=== PATIENT | female | born 1950 | race Two or more races ===

== ENCOUNTER → 2024-08-23 | Outpatient (CLI) | payer OTHER, MEDICAID, SELFPAY ==
--- NOTE | 2024-08-23 13:30 | XR_ITS ---
Examination: Screening digital mammography, bilateral Computer aided detection 3-D breast Tomosynthesis, bilateral Date and time of exam: 08/23/2024, 1:33 PM Comparisons: May 2009 through January 2023 Indications: Screening Technique: Nonmagnified MLO, CC views of the breasts to been obtained, reconstructed from 3-D Tomosynthesis images. R2 computer aided detection program utilized for evaluation of suspicious masses and/or abnormal calcifications. 3-D Tomosynthesis images obtained. Technologist: Findings: There are scattered areas of fibroglandular density. No evidence of abnormal masses or suspicious calcifications. Impression: BI-RADS category 1: Negative findings (within normal) Recommend 1 year follow-up mammogram
[2024-08-23 15:31] LABS: Basophils # (Auto) 0.1 Thou/mm3 (0.0-0.2); Basophils % (Auto) 1 % (0-2.5); Eosinophils # (Auto) 0.2 Thou/mm3 (0.0-0.5); Eosinophils % (Auto) 3 % (0-10); Hematocrit 39.7 % (36.0-46.0); Hemoglobin 13.3 g/dL (12.0-16.0); Immature Granulocytes % (Auto) 0 % (0-0); Immature Granulocytes Auto 0.02 Thou/mm3 (0.00-0.00); Lymphocytes % (Auto) 34 % (10-50); Mean Corpuscular HGB Conc 33.5 g/dl (31.0-37.0); Mean Corpuscular Hemoglobin 29.8 pg (25.0-35.0); Mean Corpuscular Volume 89 fL (80-100); Monocytes # (Auto) 0.7 Thou/mm3 (0.0-0.8); Monocytes % (Auto) 8 % (0-12); Neutrophils # (Auto) 4.8 Thou/mm3 (1.8-7.7); Neutrophils % (Auto) 55 % (37-80); Nucleated Red Blood Cell % 0 /100 WBC (0); Platelet Count 290 Thou/mm3 (140-440); RDW Standard Deviation 40.6 fL (36.4-46.3); Red Blood Count 4.47 Miln/mm3 (4.00-5.20); White Blood Count 8.9 Thou/mm3 (3.6-11.0)
[2024-08-23 15:52] LABS: Alanine Aminotransferase 26 U/L (10-49); Albumin, Serum 4.2 gm/dL (3.4-4.8); Anion Gap 11 (7-16); Aspartate Amino Transferase 29 U/L (0-34); BUN/Creatinine Ratio 17 Ratio (12-20); Bilirubin,Direct 0.1 mg/dL (0.0-0.3); Bilirubin,Total 0.4 mg/dL (0.3-1.2); Blood Urea Nitrogen 19 mg/dL (9-23); Calcium 9.2 mg/dL (8.3-10.6); Carbon Dioxide 27.5 mMol/L (20.0-31.0); Chloride 104 mMol/L (98-107); Cholesterol 185 mg/dL (132-200); Creatinine (Component) 1.1 mg/dL (0.6-1.3); Glucose 111 mg/dL (74-106); HDL Cholesterol 46 mg/dL (40-60); LDL Cholesterol,Calculated 107 mg/dL (0-130); Osmolality,Calculated 286 (275-295); Potassium 4.2 mMol/L (3.4-5.1); Sodium 142 mMol/L (136-145); Total Protein 7.5 gm/dL (5.7-8.2); Triglycerides 161 mg/dL (30-150); eGFR 53 See Note
[2024-08-23 16:06] LABS: Alkaline Phosphatase 96 U/L (46-116)
== END | disposition home or self-care (01) ==
LOC: CDIM 13:36 → COPL 13:44
PROVIDERS: PCP Family Medicine; Referring Provider Family Medicine; Visit Provider Radiology Diagnostic Radiology
DX: Z12.31 Encounter for screening mammogram for malignant neoplasm of breast (principal); R92.8 Other abnormal and inconclusive findings on diagnostic imaging of breast; R92.313 Mammographic fatty tissue density, bilateral breasts; E78.5 Hyperlipidemia, unspecified; I10 Essential (primary) hypertension
CPT/HCPCS: 36415; 77063; 77067; 80048; 80061; 80076; 85025

== ENCOUNTER 2024-09-19 15:37 | Emergency (ER) | payer OTHER, MEDICAID, SELFPAY ==
[2024-09-19 15:38] VITALS: BMI 35.0
[2024-09-19 16:02] VITALS: BP 162/73; PULSE 104; RESP 18; TEMP 37; O2SAT 95
--- NOTE | 2024-09-19 16:04 | XR_ITS ---
Examination: Tibia-Fibula, left , 2 views Technique: Tibia-fibula AP lateral 2 views Date and time of exam: September 19, 2024 1518 hours INDICATIONS: Left lower leg redness swelling and pain today FINDINGS: Moderate osteopenia No acute fracture No esdras cortical bone destruction IMPRESSION: No esdras cortical bone destruction
--- NOTE | 2024-09-19 16:04 | PD.EDRME ---
Rapid Medical Screening Exam RME Arrival date/time: 09/19/24 15:37 Chief Complaint: Extremity Injury, Lower Time Seen by Provider: 09/19/24 15:43 Vital signs: Vital Signs Temperature 98.6 F 09/19/24 16:02 Pulse Rate 104 H 09/19/24 16:02 Respiratory Rate 18 09/19/24 16:02 Blood Pressure 162/73 H 09/19/24 16:02 Pulse Oximetry (%) 95 09/19/24 16:02 Oxygen Delivery Method Room Air 09/19/24 16:02 E Narrative: LLE redness, swelling, weeping x1 day. Denies hx DM.
[2024-09-19 16:24] LABS: Basophils % (Auto) 1 % (0-2.5); Eosinophils # (Auto) 0.3 Thou/mm3 (0.0-0.5); Eosinophils % (Auto) 4 % (0-10); Hemoglobin 13.2 g/dL (12.0-16.0); Immature Granulocytes % (Auto) 0 % (0-0); Immature Granulocytes Auto 0.02 Thou/mm3 (0.00-0.00); Lymphocytes # (Auto) 2.6 Thou/mm3 (1.0-4.8); Lymphocytes % (Auto) 34 % (10-50); Mean Corpuscular HGB Conc 34.7 g/dl (31.0-37.0); Mean Corpuscular Hemoglobin 30.7 pg (25.0-35.0); Mean Corpuscular Volume 88 fL (80-100); Monocytes # (Auto) 0.7 Thou/mm3 (0.0-0.8); Monocytes % (Auto) 9 % (0-12); Neutrophils # (Auto) 3.9 Thou/mm3 (1.8-7.7); Neutrophils % (Auto) 53 % (37-80); Nucleated Red Blood Cell % 0 /100 WBC (0); Platelet Count 278 Thou/mm3 (140-440); RDW Standard Deviation 41.3 fL (36.4-46.3); White Blood Count 7.5 Thou/mm3 (3.6-11.0)
[2024-09-19 16:49] LABS: Alanine Aminotransferase 25 U/L (10-49); Albumin, Serum 4.3 gm/dL (3.4-4.8); Albumin/Globulin Ratio 1.3 (1.2-2.2); Alkaline Phosphatase 92 U/L (46-116); Anion Gap 10 (7-16); Aspartate Amino Transferase 31 U/L (0-34); BUN/Creatinine Ratio 13 Ratio (12-20); Bilirubin,Total 0.4 mg/dL (0.3-1.2); Blood Urea Nitrogen 16 mg/dL (9-23); C-Reactive Protein 0.8 mg/dL (0.0-0.9); Calcium 8.8 mg/dL (8.3-10.6); Calcium (Corrected) 8.8 mg/dL (8.5-10.1); Carbon Dioxide 25.2 mMol/L (20.0-31.0); Chloride 107 mMol/L (98-107); Creatinine (Component) 1.2 mg/dL (0.6-1.3); Estimated Creatinine Clearance 43.7 mL/min (>60); Globulin 3.2 gm/dL (2.3-3.5); Glucose 127 mg/dL (74-106); Osmolality,Calculated 286 (275-295); Potassium 3.6 mMol/L (3.4-5.1); Procalcitonin 0.08 ng/ml (0.0-0.49); Sodium 142 mMol/L (136-145); Total Protein 7.5 gm/dL (5.7-8.2); eGFR 48 See Note
[2024-09-19 17:15] LABS: Sed Rate (ESR) 19 mm/hr (0-30)
--- NOTE | 2024-09-19 19:57 | PD.EDLOWEX ---
Lower Extremity Injury RME/HPI General Chief Complaint: Extremity Injury, Lower Stated Complaint: DARK RED, SWOLLEN, OOZING LLE. Time Seen by Provider: 09/19/24 15:43 Arrival date/time: 09/19/24 15:37 Limitations: no limitations RME / HPI RME / HPI Narrative: 73-year-old female with past medical history of venous insufficiency, fibromyalgia, hypertension presents for evaluation of ulcer to her left anterior lower leg x 1 day. She denies history of similar symptoms. She notes that she had a vascular stent placed in her left lower leg several years ago and is pending outpatient referral for further management of venous insufficiency. She reports that she was prescribed compression stockings but is noncompliant. Denies fever, chills, nausea, vomiting, injury, numbness, chest pain, shortness of breath. Related Data Home Medications ?Medication ?Instructions ?Recorded ?Confirmed tramadol 50 mg tablet (Ultram) 50 mg PO Q4HR PRN PAIN #0 tabs 03/15/14 gabapentin 800 mg tablet 800 mg PO TID NEUROPATHY ##0 07/04/14 baclofen 20 mg tablet 20 mg PO BID #0 tabs 09/28/15 bupropion HCl 150 mg tablet,12 hr 150 mg PO BID ##0 09/28/15 sustained-release (Wellbutrin SR) mirtazapine 15 mg tablet (Remeron) 15 mg PO HS #0 tabs 09/28/15 tizanidine 4 mg tablet (Zanaflex) 4 mg PO BID #0 tabs 09/28/15 Previous Rx's ?Medication ?Instructions ?Recorded TRIMETHOPRIM/SULFAMETHOXAZOLE 1 tab PO BID #28 tabs 10/02/15 (Bactrim Ds) cephalexin 500 mg capsule 500 mg PO BID 10 days #20 caps 09/19/24 sulfamethoxazole 800 1 tab PO BID 7 days #14 tabs 09/19/24 mg-trimethoprim 160 mg tablet (Bactrim DS) Allergies Allergy/AdvReac Type Severity Reaction Status Date / Time No Known Allergies Allergy Verified 09/19/24 15:41 Review of Systems Constitutional Constitutional: Denies chills, Denies fatigue, Denies fever(s), Denies night sweats and Denies weakness ENT Ears, Nose, Mouth, and Throat: Denies disequilibrium, Denies dizziness and Denies neck pain Cardiovascular Cardiovascular: Denies chest pain, Denies dyspnea, Reports leg edema and Denies palpitations Respiratory Respiratory: Denies cough, Denies dyspnea, Denies hemoptysis and Denies wheezing Gastrointestinal Gastrointestinal: Denies abdominal pain, Denies nausea and Denies vomiting Musculoskeletal Musculoskeletal: Reports back pain (Chronic.) and Denies neck pain Integumentary/Breasts Skin/Breast: Reports erythema (Left anterior leg.), Reports non-healing lesions (Left anterior leg.), Reports sores (Left anterior leg.) and Reports skin swelling Neurologic Neurologic: Denies disequilibrium, Denies dizziness and Denies weakness Endocrine Endocrine: Denies fatigue and Denies palpitations Allergic/Immunologic Allergic/Immunologic: Denies wheezing Past Medical History Social History SMOKING STATUS: Never smoker ED Exam General Limitations: Present no limitations General appearance: Present alert and in no apparent distress Head Head exam: Present atraumatic and normocephalic Eye Eye exam: Present normal appearance and EOMI ENT ENT exam: Present normal exam, normal oropharynx and mucous membranes moist Chest Chest inspection: Present normal inspection and symmetric chest wall rise Respiratory Respiratory exam: Absent respiratory distress Cardiovascular Cardiovascular exam: Present tachycardia Abdominal Exam Abdominal exam: Present soft; Absent distention Expanded Lower Extremity Exam Leg image:  1. Approximately 4 cm ulcerative lesion with purulent discharge and surrounding erythema consistent with cellulitis. No crepitus. Erythematous area is indurated. Knee exam: Absent tenderness Lower leg exam: Present swelling and erythema; Absent crepitus Gait: not tested/not observed Neurological Exam Neurological exam: Present alert Psychiatric Psychiatric exam: Present normal affect Skin Skin exam: Present warm and dry Course Quality Measures none Orders Category Date Time Status XR tibia fibula LT 2V Stat Exams 09/19/24 16:04 Completed Blood Culture (Lab) Stat Lab 09/19/24 16:10 Results CBC Stat Lab 09/19/24 16:15 Completed CMP [Comprehensive Metabolic Panel] Stat Lab 09/19/24 16:15 Completed CRP [C-Reactive Protein] Stat Lab 09/19/24 16:15 Completed ESR [Sed Rate (ESR)] Stat Lab 09/19/24 16:15 Completed Lactate (Lactic Acid) Stat Lab 09/19/24 16:15 Completed Procalcitonin Stat Lab 09/19/24 16:15 Completed HYDROcodone*/APAP 5/325 [Sunol 5/325] Med 09/19/24 19:59 Discontinued 1 tab PO X1 ONE Ketorolac Inj [Toradol Inj] Med 09/19/24 19:57 Discontinued 30 mg IM X1 ONE cefTRIAXone [Rocephin] 1,000 mg Med 09/19/24 19:58 Discontinued Lidocaine 1% 20 ml [Xylocaine 1% 20 ML] 2.1 ml IM X1 Vital Signs Vital signs: Vital Signs Temperature 98.6 F 09/19/24 16:02 Pulse Rate 104 H 09/19/24 16:02 Respiratory Rate 18 09/19/24 16:02 Blood Pressure 162/73 H 09/19/24 16:02 Pulse Oximetry (%) 95 09/19/24 16:02 Oxygen Delivery Method Room Air 09/19/24 16:02 Pulse ox 95% on room air, within normal limits. Extremity Injury, Lower MDM Narrative MDM Narrative:: 73-year-old female presents with ulcerative lesion left lower extremity in the setting of known venous insufficiency with prior stent placement. Patient mildly tachycardic otherwise vital signs reassuring. No evidence of osteomyelitis on imaging today with negative Pro-Jayden further pointing away from bony involvement at this time. Patient does not meet SIRS criteria and had a negative lactic and no leukocytosis. Ultimately the patient was given a dose of Rocephin in the department with plan for outpatient follow-up with primary care and ultimately vascular surgery at this is likely related to her known venous insufficiency. Patient was discharged on x 2 oral antibiotics with MRSA coverage. Basic dressing was applied and patient was stable at time discharge. Patient data External records reviewed:: [facility] previous records Clinical information provided by:: patient and family (Son.) Social determinants that could affect healthcare access:: none (Lapse in insurance.) Patient has the following chronic illnesses:: Venous insufficiency. How is presenting disease/condition affected by chronic disease/condition?: caused by Evaluation data The following diagnostics were reviewed and interpreted by me:: lab results and radiology exam(s) Lab and/or radiology exams considered but not ordered:: Considered not ordered. Interpretation Summary: X-ray left lower extremity without cortical bone destruction. Soft tissue swelling. No leukocytosis or evidence of systemic infection at this time. Lactic acid and Pro-Jayden within normal limits. Medications / Prescriptions Medications or Prescriptions considered but not ordered:: Rx given. Medication administrations:: Medication Administration History Discontinued Medications Hydrocodone Bitart/Acetaminophen (Hydrocodone/Apap 5/325 Tablet) 1 tab PO X1 ONE Stop: 09/19/24 20:00 Last Admin: 09/19/24 20:04 Dose: 1 tab Documented By: FREEDOM Ceftriaxone Sodium 1,000 mg/ (Lidocaine HCl 2.1 ml) 0 mg IM X1 ONE Stop: 09/19/24 19:59 Last Admin: 09/19/24 20:05 Dose: 1,000 mg Documented By: FREEDOM Ketorolac Tromethamine (Ketorolac Inj 60 Mg/2 Ml Vial) 30 mg IM X1 ONE Stop: 09/19/24 19:58 Last Admin: 09/19/24 20:09 Dose: Not Given Documented By: FREEDOM Non-Admin Reason: Cancelled by Provider Rx given. Consultations Consultation(s) initiated? (list below): No Diagnosis Extremity Injury, Lower Differential Diagnosis: other (Osteomyelitis, cellulitis, sepsis, venous insufficiency.) Most likely diagnosis given after review of the tests above:: Cellulitis. Ulcerative lesion of left lower extremity. Admission Indicated Admission indicated?: not indicated Admission Request Was there a request for admission?: No Disposition Plan Disposition Plan: Discharge Discharge Attestation Discharge Attestation: The patient and all family members were given an opportunity to ask questions and understood the discharge instructions. Discharge instructions specifically effects, indications for sooner follow up or return to the emergency department, and the expected course of current diagnosis. Patient condition: Stable Discharge Plan Plan Patient Disposition: HOME (Self Care) Disposition Comment: stable Prescriptions/Referrals Prescriptions/Med Rec: New cephalexin 500 mg capsule 500 mg PO BID 10 Days Qty: 20 0RF sulfamethoxazole-trimethoprim [Bactrim DS] 800-160 mg tablet 1 tab PO BID 7 Days Qty: 14 0RF No Action tramadol [Ultram] 50 MG tablet 50 mg PO Q4HR PRN (Reason: PAIN) Qty: 0 Patient Comments: FOR PAIN, NOT TO EXCEED 8 TABS IN 24 HRS gabapentin 800 MG tablet 800 mg PO TID Qty: 0 bupropion HCl [Wellbutrin SR] 150 MG tablet extended release 12 hr 150 mg PO BID Qty: 0 tizanidine [Zanaflex] 4 MG tablet 4 mg PO BID Qty: 0 baclofen 20 MG tablet 20 mg PO BID Qty: 0 mirtazapine [Remeron] 15 MG tablet 15 mg PO HS Qty: 0 TRIMETHOPRIM/SULFAMETHOXAZOLE (Bactrim Ds) 1 TAB tablet 1 tab PO BID Qty: 28 0RF Referrals: No Primary/Family,Physician [Primary Care Provider] - In 1 week Problem List Clinical Impression: Ulcer of lower extremity, Cellulitis Patient/Caregiver Discharge Instructions Other Activity Instructions:: Take Keflex twice daily for the next x 10 days. Take Bactrim 3 times daily for the next x 7 days. Treat leg pain as needed with Tylenol every 6 hours. Use compression stockings as instructed. Follow-up with primary care within the next 2 to 3 days for further evaluation and treatment. Continue as planned with outpatient vascular surgeon. Return to the ED if your symptoms worsen or change. Education Materials: ED Cellulitis Print Language: Turkish Stand Alone Forms: [facility] Award Info., Patient Portal Info Letter PA/CLOCK ASSEMBLER Supervising Physician PA/CLOCK ASSEMBLER Supervising Physician: Dr. Hammonds
[2024-09-19] MEDS: HYDROcodone/APAP 5/325 TABLET 1 TAB PO (20:04)
[2024-09-19] MEDS: cefTRIAXone 1,000 MG, LIDOCAINE 1% 20 ML 2.1 ML IM (20:05)
== END 2024-09-19 20:39 | disposition home or self-care (01) ==
PROVIDERS: Physician Assistant; Emergency Provider Emergency Medicine
DX: L97.929 Non-pressure chronic ulcer of unspecified part of left lower leg with unspecified severity (principal); I87.2 Venous insufficiency (chronic) (peripheral); M79.7 Fibromyalgia; I10 Essential (primary) hypertension
CPT/HCPCS: 36415; 73590; 80053; 83605; 84145; 85025; 85652; 86140; 87040; 96372; 99283; J0696; J3490; A9270

== ENCOUNTER → 2024-11-16 | Outpatient (CLI) | payer OTHER, SELFPAY | END | disposition home or self-care (01) | LOC: SWHD 12:47 | PROVIDERS: PCP Student in an Organized Health Care Education/Training Program; Referring Provider Student in an Organized Health Care Education/Training Program; Visit Provider Student in an Organized Health Care Education/Training Program | DX: T81.89XA Other complications of procedures, not elsewhere classified, initial encounter (principal); L97.822 Non-pressure chronic ulcer of other part of left lower leg with fat layer exposed; M79.7 Fibromyalgia; I10 Essential (primary) hypertension; R60.0 Localized edema; F41.9 Anxiety disorder, unspecified | CPT/HCPCS: 17250; 99213; A9270; G0463 ==

== ENCOUNTER → 2024-11-18 | Outpatient (CLI) | payer OTHER, SELFPAY | END | disposition home or self-care (01) | PROVIDERS: PCP Family Medicine; Referring Provider Family Medicine; Visit Provider Surgery | DX: T81.89XA Other complications of procedures, not elsewhere classified, initial encounter (principal); L97.822 Non-pressure chronic ulcer of other part of left lower leg with fat layer exposed; M79.7 Fibromyalgia; I10 Essential (primary) hypertension; R60.0 Localized edema; F41.9 Anxiety disorder, unspecified | CPT/HCPCS: 29581 ==

== ENCOUNTER → 2024-11-28 | Outpatient (CLI) | payer OTHER, SELFPAY | END | disposition home or self-care (01) | LOC: SWHD 13:22 | PROVIDERS: PCP Family Medicine; Referring Provider Family Medicine; Visit Provider Student in an Organized Health Care Education/Training Program | DX: T81.89XA Other complications of procedures, not elsewhere classified, initial encounter (principal); L97.822 Non-pressure chronic ulcer of other part of left lower leg with fat layer exposed; M79.7 Fibromyalgia; F41.9 Anxiety disorder, unspecified | CPT/HCPCS: 11042; A9270 ==

== ENCOUNTER → 2024-12-05 | Outpatient (CLI) | payer OTHER, SELFPAY | END | disposition home or self-care (01) | PROVIDERS: PCP Family Medicine; Referring Provider Family Medicine; Visit Provider Student in an Organized Health Care Education/Training Program | DX: T81.89XA Other complications of procedures, not elsewhere classified, initial encounter (principal); L97.822 Non-pressure chronic ulcer of other part of left lower leg with fat layer exposed; M79.7 Fibromyalgia; F41.9 Anxiety disorder, unspecified | CPT/HCPCS: 17250; A9270 ==

== ENCOUNTER → 2024-12-21 | Outpatient (CLI) | payer OTHER, SELFPAY | END | disposition home or self-care (01) | LOC: SWHD 13:56 | PROVIDERS: PCP Family Medicine; Referring Provider Family Medicine; Visit Provider Student in an Organized Health Care Education/Training Program | DX: T81.89XA Other complications of procedures, not elsewhere classified, initial encounter (principal); L97.822 Non-pressure chronic ulcer of other part of left lower leg with fat layer exposed; M79.7 Fibromyalgia; F41.9 Anxiety disorder, unspecified | CPT/HCPCS: 97597; A9270 ==

== ENCOUNTER → 2024-12-28 | Outpatient (CLI) | payer OTHER, SELFPAY | END | disposition home or self-care (01) | LOC: SWHD 13:32 | PROVIDERS: PCP Family Medicine; Referring Provider Family Medicine; Visit Provider Student in an Organized Health Care Education/Training Program | DX: T81.89XA Other complications of procedures, not elsewhere classified, initial encounter (principal); L97.822 Non-pressure chronic ulcer of other part of left lower leg with fat layer exposed; M79.7 Fibromyalgia; F41.9 Anxiety disorder, unspecified | CPT/HCPCS: 97597; A9270 ==

== ENCOUNTER → 2025-01-04 | Outpatient (CLI) | payer OTHER, SELFPAY | END | disposition home or self-care (01) | LOC: SWHD 09:27 | PROVIDERS: PCP Family Medicine; Referring Provider Family Medicine; Visit Provider Student in an Organized Health Care Education/Training Program | DX: T81.89XA Other complications of procedures, not elsewhere classified, initial encounter (principal); S81.802A Unspecified open wound, left lower leg, initial encounter; X58.XXXA Exposure to other specified factors, initial encounter; L97.822 Non-pressure chronic ulcer of other part of left lower leg with fat layer exposed; M79.7 Fibromyalgia; F41.9 Anxiety disorder, unspecified | CPT/HCPCS: 11042; A9270 ==

== ENCOUNTER → 2025-01-04 | Outpatient (CLI) | payer OTHER, SELFPAY | END | disposition home or self-care (01) | LOC: SLDO 14:39 | PROVIDERS: Referring Provider Student in an Organized Health Care Education/Training Program; Visit Provider Student in an Organized Health Care Education/Training Program | DX: I87.332 Chronic venous hypertension (idiopathic) with ulcer and inflammation of left lower extremity (principal) | CPT/HCPCS: 87070; 87075; 87077; 87186; 87205 ==

== ENCOUNTER → 2025-01-18 | Outpatient (CLI) | payer OTHER, SELFPAY | END | disposition home or self-care (01) | LOC: SWHD 09:50 | PROVIDERS: PCP Family Medicine; Referring Provider Family Medicine; Visit Provider Student in an Organized Health Care Education/Training Program | DX: T81.89XA Other complications of procedures, not elsewhere classified, initial encounter (principal); S81.802A Unspecified open wound, left lower leg, initial encounter; X58.XXXA Exposure to other specified factors, initial encounter; L97.822 Non-pressure chronic ulcer of other part of left lower leg with fat layer exposed; M79.7 Fibromyalgia; F41.9 Anxiety disorder, unspecified | CPT/HCPCS: 97597; A9270 ==

== ENCOUNTER → 2025-01-25 | Outpatient (CLI) | payer OTHER, SELFPAY | END | disposition home or self-care (01) | LOC: SWHD 10:05 | PROVIDERS: PCP Family Medicine; Referring Provider Family Medicine; Visit Provider Student in an Organized Health Care Education/Training Program | DX: T81.89XA Other complications of procedures, not elsewhere classified, initial encounter (principal); S81.802A Unspecified open wound, left lower leg, initial encounter; X58.XXXA Exposure to other specified factors, initial encounter; L97.822 Non-pressure chronic ulcer of other part of left lower leg with fat layer exposed; M79.7 Fibromyalgia; F41.9 Anxiety disorder, unspecified | CPT/HCPCS: 17250; A9270 ==

== ENCOUNTER → 2025-02-01 | Outpatient (CLI) | payer OTHER, SELFPAY | END | disposition home or self-care (01) | LOC: SWHD 09:58 | PROVIDERS: PCP Family Medicine; Referring Provider Family Medicine; Visit Provider Student in an Organized Health Care Education/Training Program | DX: T81.89XA Other complications of procedures, not elsewhere classified, initial encounter (principal); S81.802A Unspecified open wound, left lower leg, initial encounter; X58.XXXA Exposure to other specified factors, initial encounter; L97.822 Non-pressure chronic ulcer of other part of left lower leg with fat layer exposed; M79.7 Fibromyalgia; F41.9 Anxiety disorder, unspecified | CPT/HCPCS: 97597; A9270 ==

== ENCOUNTER → 2025-02-08 | Outpatient (CLI) | payer OTHER, SELFPAY | END | disposition home or self-care (01) | LOC: SWHD 09:57 | PROVIDERS: PCP Family Medicine; Referring Provider Family Medicine; Visit Provider Student in an Organized Health Care Education/Training Program | DX: T81.89XA Other complications of procedures, not elsewhere classified, initial encounter (principal); S81.802A Unspecified open wound, left lower leg, initial encounter; X58.XXXA Exposure to other specified factors, initial encounter; L97.822 Non-pressure chronic ulcer of other part of left lower leg with fat layer exposed; M79.7 Fibromyalgia; F41.9 Anxiety disorder, unspecified | CPT/HCPCS: 17250; A9270 ==

== ENCOUNTER → 2025-02-15 | Outpatient (CLI) | payer OTHER, SELFPAY | END | disposition home or self-care (01) | LOC: SWHD 10:08 | PROVIDERS: PCP Family Medicine; Referring Provider Family Medicine; Visit Provider Student in an Organized Health Care Education/Training Program | DX: T81.89XA Other complications of procedures, not elsewhere classified, initial encounter (principal); S81.802A Unspecified open wound, left lower leg, initial encounter; X58.XXXA Exposure to other specified factors, initial encounter; L97.822 Non-pressure chronic ulcer of other part of left lower leg with fat layer exposed; M79.7 Fibromyalgia; F41.9 Anxiety disorder, unspecified | CPT/HCPCS: 17250; A9270 ==

== ENCOUNTER → 2025-02-22 | Outpatient (CLI) | payer OTHER, SELFPAY | END | disposition home or self-care (01) | LOC: SWHD 09:40 | PROVIDERS: PCP Family Medicine; Referring Provider Family Medicine; Visit Provider Student in an Organized Health Care Education/Training Program | DX: T81.89XA Other complications of procedures, not elsewhere classified, initial encounter (principal); S81.802A Unspecified open wound, left lower leg, initial encounter; X58.XXXA Exposure to other specified factors, initial encounter; L97.822 Non-pressure chronic ulcer of other part of left lower leg with fat layer exposed; M79.7 Fibromyalgia; F41.9 Anxiety disorder, unspecified | CPT/HCPCS: 29580; A9270 ==

== ENCOUNTER → 2025-03-01 | Outpatient (CLI) | payer OTHER, SELFPAY | END | disposition home or self-care (01) | LOC: SWHD 10:33 | PROVIDERS: PCP Family Medicine; Referring Provider Family Medicine; Visit Provider Student in an Organized Health Care Education/Training Program | DX: T81.89XA Other complications of procedures, not elsewhere classified, initial encounter (principal); S81.802A Unspecified open wound, left lower leg, initial encounter; X58.XXXA Exposure to other specified factors, initial encounter; L97.822 Non-pressure chronic ulcer of other part of left lower leg with fat layer exposed; M79.7 Fibromyalgia; F41.9 Anxiety disorder, unspecified | CPT/HCPCS: 29581; A9270 ==

== ENCOUNTER → 2025-03-08 | Outpatient (CLI) | payer OTHER, MEDICAID, SELFPAY ==
--- NOTE | 2025-03-08 | XR_ITS ---
Examination: Tibia-Fibula, left , 2 views Technique: Tibia-fibula AP lateral 2 views Date and time of exam: 2024, 1311 hours INDICATIONS: Nonhealing wound lower leg several months. FINDINGS: Bimalleolar soft tissue swelling. Air in the soft tissue adjacent to the medial malleolus. No fracture. No cortical bone destruction IMPRESSION: No cortical bone destruction
== END | disposition home or self-care (01) ==
PROVIDERS: PCP Student in an Organized Health Care Education/Training Program; Referring Provider Student in an Organized Health Care Education/Training Program; Visit Provider Student in an Organized Health Care Education/Training Program
DX: M86.162 Other acute osteomyelitis, left tibia and fibula (principal)
CPT/HCPCS: 73590

== ENCOUNTER → 2025-03-08 | Outpatient (CLI) | payer OTHER, SELFPAY | END | disposition home or self-care (01) | LOC: SWHD 10:45 | PROVIDERS: PCP Family Medicine; Referring Provider Family Medicine; Visit Provider Student in an Organized Health Care Education/Training Program | DX: T81.89XA Other complications of procedures, not elsewhere classified, initial encounter (principal); S81.802A Unspecified open wound, left lower leg, initial encounter; X58.XXXA Exposure to other specified factors, initial encounter; L97.822 Non-pressure chronic ulcer of other part of left lower leg with fat layer exposed; M79.7 Fibromyalgia; F41.9 Anxiety disorder, unspecified | CPT/HCPCS: 99212; A9270; G0463 ==

== ENCOUNTER → 2025-03-15 | Outpatient (CLI) | payer OTHER, SELFPAY | END | disposition home or self-care (01) | LOC: SWHD 13:10 | PROVIDERS: PCP Family Medicine; Referring Provider Family Medicine; Visit Provider Student in an Organized Health Care Education/Training Program | DX: T81.89XA Other complications of procedures, not elsewhere classified, initial encounter (principal); S81.802A Unspecified open wound, left lower leg, initial encounter; X58.XXXA Exposure to other specified factors, initial encounter; L97.822 Non-pressure chronic ulcer of other part of left lower leg with fat layer exposed; M79.7 Fibromyalgia; F41.9 Anxiety disorder, unspecified | CPT/HCPCS: 99213; A9270; G0463 ==

== ENCOUNTER → 2025-03-29 | Outpatient (CLI) | payer OTHER, SELFPAY | END | disposition home or self-care (01) | LOC: SWHD 11:06 | PROVIDERS: PCP Family Medicine; Referring Provider Family Medicine; Visit Provider Student in an Organized Health Care Education/Training Program | DX: T81.89XA Other complications of procedures, not elsewhere classified, initial encounter (principal); S81.802A Unspecified open wound, left lower leg, initial encounter; X58.XXXA Exposure to other specified factors, initial encounter; L97.821 Non-pressure chronic ulcer of other part of left lower leg limited to breakdown of skin; M79.7 Fibromyalgia; F41.9 Anxiety disorder, unspecified; R60.0 Localized edema | CPT/HCPCS: 29581; A9270 ==

== ENCOUNTER → 2025-04-05 | Outpatient (CLI) | payer OTHER, SELFPAY | END | disposition home or self-care (01) | LOC: SWHD 10:55 | PROVIDERS: PCP Family Medicine; Referring Provider Family Medicine; Visit Provider Student in an Organized Health Care Education/Training Program | DX: T81.89XA Other complications of procedures, not elsewhere classified, initial encounter (principal); S81.802A Unspecified open wound, left lower leg, initial encounter; X58.XXXA Exposure to other specified factors, initial encounter; L97.821 Non-pressure chronic ulcer of other part of left lower leg limited to breakdown of skin; M79.7 Fibromyalgia; F41.9 Anxiety disorder, unspecified; R60.0 Localized edema | CPT/HCPCS: 29581; A9270 ==

== ENCOUNTER → 2025-04-12 | Outpatient (CLI) | payer OTHER, SELFPAY | END | disposition home or self-care (01) | LOC: SWHD 13:50 | PROVIDERS: PCP Family Medicine; Referring Provider Family Medicine; Visit Provider Student in an Organized Health Care Education/Training Program | DX: T81.89XA Other complications of procedures, not elsewhere classified, initial encounter (principal); S81.802A Unspecified open wound, left lower leg, initial encounter; X58.XXXA Exposure to other specified factors, initial encounter; L97.821 Non-pressure chronic ulcer of other part of left lower leg limited to breakdown of skin; M79.7 Fibromyalgia; F41.9 Anxiety disorder, unspecified; R60.0 Localized edema | CPT/HCPCS: 29581 ==

== ENCOUNTER → 2025-04-26 | Outpatient (CLI) | payer OTHER, SELFPAY | END | disposition home or self-care (01) | LOC: SWHD 10:51 | PROVIDERS: PCP Family Medicine; Referring Provider Family Medicine; Visit Provider Student in an Organized Health Care Education/Training Program | DX: T81.89XA Other complications of procedures, not elsewhere classified, initial encounter (principal); S81.802A Unspecified open wound, left lower leg, initial encounter; X58.XXXA Exposure to other specified factors, initial encounter; L97.821 Non-pressure chronic ulcer of other part of left lower leg limited to breakdown of skin; M79.7 Fibromyalgia; F41.9 Anxiety disorder, unspecified; R60.0 Localized edema | CPT/HCPCS: 99212; G0463 ==

== ENCOUNTER → 2025-05-10 | Outpatient (CLI) | payer OTHER, SELFPAY | END | disposition home or self-care (01) | LOC: SWHD 09:11 | PROVIDERS: PCP Family Medicine; Referring Provider Family Medicine; Visit Provider Student in an Organized Health Care Education/Training Program | DX: T81.89XA Other complications of procedures, not elsewhere classified, initial encounter (principal); S81.802A Unspecified open wound, left lower leg, initial encounter; X58.XXXA Exposure to other specified factors, initial encounter; L97.821 Non-pressure chronic ulcer of other part of left lower leg limited to breakdown of skin; M79.7 Fibromyalgia; F41.9 Anxiety disorder, unspecified; R60.0 Localized edema | CPT/HCPCS: 99212; G0463 ==